=== PATIENT | female | born 1975 | race Caucasian/White ===

== ENCOUNTER 2017-01-26 16:17 | Inpatient (IN) | payer OTHER ==
[~2017-01-26] VITALS: Ht 157.5 cm; Wt 84.5 kg
--- NOTE | ~2017-01-26 | INDIVTXPL2 ---
"PATIENT: NOELLE COOPER R | | [facility] UNIT #: [id number] | [address] AGE/SEX: 41 F : 71 | [address] | [place] [phone] ADMIT/REG DATE: 02/03/17 | ROOM: [facility] LOC: ADTC | ADTC | Individualized Treatment Plan DATE: 02/22/17 Problem Statement/Issue Identified: Client needs to identify ways to improve self esteem to help maintain rn long term care sobriety from all mood altering substances. Goal: Client is to build self-esteem to strengthen her recovery from addiction. Objectives/Activities to achieve goal: 1. Client is to write 10-15 good qualities about herself, and then is to interview 7 peers and 3 staff to name 2 good qualities about herself, client will add these to her list. Share with counselor. Due Date: 03/01/17 Complete: Incomplete: 2. Client is to read spiritual handout on HP and can reflect on positive traits she has during EMDR therapy. Discuss with counselor. Due Date: 03/03/17 Complete: Incomplete: Client Signature Date Counselor Signaure: Date Outcome/Measurement of Progress Towards Goal: Counselor Signature: Date "
--- NOTE | ~2017-01-26 | INDIVTXPL2 ---
"PATIENT: NOELLE COOPER R | | [facility] UNIT #: [id number] | [address] AGE/SEX: 41 F : 71 | [address] | [place] [address] ADMIT/REG DATE: 02/03/17 | ROOM: [facility] LOC: ADTC | ADTC | Individualized Treatment Plan DATE: 02/15/17 Problem Statement/Issue Identified: Client is experiencing family discord and distancing as a result of past alcohol & drug usage. Clients goal is: Client will learn about effects of addiction on family/self, and work on owning how her addiction hurt her loved ones and owning her feelings to strengthen family support in her recovery. Objectives/Activities to achieve goal: 1. Client is to attend Family Educational Program and Tuesday 2-4:45pm to learn about effects of addiction on self/family and is to participate. See family notes. Due Date: 02/28/17 Complete: Incomplete: 2. Client is to write feelings letters to her parents/daughter owning how her addiction hurt them and her feelings about this. Share with counselor/family group/session. Due Date: 02/28/17 Complete: Incomplete: 3. Client is to have family session/phone session with parents and if daughter can come, have a 1 hour family session or the family program if possible. See family note. Due Date: 02/28/17 Complete: Incomplete: Client Signature Date Counselor Signaure: Date Outcome/Measurement of Progress Towards Goal: Counselor Signature: Date "
--- NOTE | ~2017-01-26 | TXPLANREV ---
"PATIENT: NOELLE COOPER | | [facility] UNIT #: [id number] | [address] AGE/SEX: 41 F : 71 | [address] | [place] [address] ADMIT/REG DATE: 02/03/17 | ROOM: [facility] LOC: ADTC | ADTC | Treatment Plan/Staffing Review Date: 02/24/17 Treatment plan was reviewed and determined appropriate as written: yes, client is to do EMDR therapy and relapse prevention. Treatment plan was reviewed and the following changes/addition/deletions are necessary: Discharge plans were reviewed and determined appropriate as previously documented: Client is to discharge on 03/03/17, is referred to see Tony Foreman on 03/10 at 9am and come back for Codep/Womens Group 03/10 at 6pm-7:45pm. She is also referred to [facility] at 2pm on 03/03/17. She is to attend at least 4 meetings a week and voiced she will go daily and more. She has sponsor she is to continue to talk to daily. Discharge plans were reviewed and determined to be as follows: Other pertinent issues discussed during this staffing review include: Client is doing very well in treatment and would benefit from an all womens group and to continue to work on issues/feelings with her family. She Staff Present: Shasta Webber, Tony Foreman, Nalini Duran, Ny Yepez, Monique Wright, Kristen Mackey PRIMARY COUNSELOR: Fely Dillard Client Signature Counselor Signature Date Time "
--- NOTE | ~2017-01-26 | INDIVTXPL2 ---
"PATIENT: NOELLE COOPER R | | [facility] UNIT #: [id number] | [address] AGE/SEX: 41 F : 71 | [address] | [place] [address] ADMIT/REG DATE: 02/03/17 | ROOM: [facility] LOC: ADTC | ADTC | Individualized Treatment Plan DATE: 02/10/17 Problem Statement/Issue Identified:Client continues to use alcohol/drugs/involvement in criminal behavior despite ongoing negative consequences. Goal: Client is learn about addiction and recovery, identifying consequences of her addiction/criminal behaviors and learn how to succeed in sober/clean/healthy lifestyle. Objectives/Activities to achieve goal: 1. Client is to fill out Getting Started and Step 1 packets, identifying 5-10 consequences of her use. Share with counselor and share selected pages in group. Due Date: 02/17/17 Complete: Incomplete: 2. Client is to fill out Criminogenic packet, identifying 3-5 old criminal behaviors/thoughts that she needs to change. Share with counselor what she related to and how she plans to change. See counselor note. Due Date: 02/22/17 Complete: Incomplete: 3. 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 Share progress with counselor. Due Date: ongoing Complete: Incomplete: Client Signature Date Counselor Signaure: Date Outcome/Measurement of Progress Towards Goal: Counselor Signature: Date "
--- NOTE | ~2017-01-26 | TXPLANREV ---
"PATIENT: NOELLE COOPER | | [facility] UNIT #: [id number] | [address] AGE/SEX: 41 F : 71 | [address] | [place] [address] ADMIT/REG DATE: 02/03/17 | ROOM: [facility] LOC: ADTC | ADTC | Treatment Plan/Staffing Review Date: 02/17/17 Treatment plan was reviewed and determined appropriate as written: Client has completed step 1, Con Game and now is to start on feelings letters. Treatment plan was reviewed and the following changes/addition/deletions are necessary: Discharge plans were reviewed and determined appropriate as previously documented: Discharge plans were reviewed and determined to be as follows: Client is to discharge on 03/03/17, she has applied to [facility], and will be referred to aftercare counseling and group therapy here, along with AA/NA and using her sponsor. Other pertinent issues discussed during this staffing review include: Client is very serious, does very well with her assignments and follows rules. Staff Present: Janel Domínguez, Monique Wright, Kristen Mackey, Javad Espinoza, Ny Yepez PRIMARY COUNSELOR: Fely Dillard Client Signature Counselor Signature Date Time "
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
--- NOTE | ~2017-01-26 | INDIVTXPL2 ---
"PATIENT: NOELLE COOPER R | | [facility] UNIT #: [id number] | [address] AGE/SEX: 41 F : 71 | [address] | [place] [address] ADMIT/REG DATE: 02/03/17 | ROOM: [facility] LOC: ADTC | ADTC | Individualized Treatment Plan DATE: 02/22/17 Problem Statement/Issue Identified: Client is relapsing and needs to identify relapse warning signs and develop a plan to deal with them as they arise. Goal: Client is to learn about relapse prevention, identifying her relapse symptoms/triggers and develop a plan of how to avoid relapse. Objectives/Activities to achieve goal: 1. Client is to attend Relapse Prevention class every Tuesday while in treatment and participate. Also attend Relapse lecture 5:30pm on 03/01/17. See class notes. Due Date: 03/01/17 Complete: Incomplete: 2. Client is to fill out Relapse Prevention packet, identifying top 5-10 relapse triggers and develop plan of how to avoid relapse. Share with counselor and selected pages in group. Due Date: 03/03/17 and in aftercare go over with counselor Complete: Incomplete: Client Signature Date Counselor Signaure: Date Outcome/Measurement of Progress Towards Goal: Counselor Signature: Date "
--- NOTE | 2017-02-03 12:55 | NUR ---
ADMISSION NOTE Client is a 41 y/o single female, referred to treatment by probation and brought here today by a friend from her home in [place], where the client lives alone. Client states medical allergy to penicillin and brings no medications with her today. Client states DOC is marijuana, last used February 01; client states that she generally smokes 3 joints per week. Client also smokes meth, most recently on January 30- two to three bowls. Client was searched, no contraband found. 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 Client stated that she did not need to write down numbers from her phone, that she has them memorized. Rights/Responsibilities: Copy given and explained to client. Signed and accepted by client. Client oriented to physical lay out of the ADTC unit, given Big Book and admission packet. A Mahamed was assigned. Amita
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
--- NOTE | 2017-02-03 17:24 | NUR ---
Step ed. 1 hr/ focus was on step one and powerlessness. Each person answered a set of questions on paper and then we discussed out loud. This client participated.
--- NOTE | 2017-02-03 23:14 | NUR ---
TECH NOTE: Client did Indian[employer]agemer bookmarks for REC, participated in guided meditation, and attended AA meeting. Did first intros. SE: first day in treatment
--- NOTE | 2017-02-04 01:22 | NUR ---
1 HR EDUCATION: Client watched a video "Say Yes to Life" by Father Ousmane Bingham
--- NOTE | 2017-02-04 04:45 | NUR ---
Bed Note: CLt lay motionless in bed with eyes closed showing no distress at all bed checks.
--- NOTE | 2017-02-04 13:41 | NUR ---
Morning Group, 10/20, 1.5 hours, Client attended and actively participated in group session. Client shared she is still learning about the treatment program and moslty listened.
--- NOTE | 2017-02-04 14:57 | NUR ---
PEER REVIEWS 1.5 HRS: Clt participated in peer review process and took a risk to give open and honest feedback.
--- NOTE | 2017-02-04 16:33 | NUR ---
Tech Note: Clt watched "Relapse" for afternoon video. Clt is working on Getting Started.
--- NOTE | 2017-02-04 22:53 | NUR ---
Tech note: Client watched tv and movies.
--- NOTE | 2017-02-05 05:24 | NUR ---
Bed note : Client was in bed motionless with eyes close at all bed checks.
--- NOTE | 2017-02-05 15:44 | NUR ---
Tech Note: Client attended A.A.Meeting at [facility] and [place] and then helped with the clubhouse cleaning, ate lunch, and listened to a speaker. Client is working on BB
--- NOTE | 2017-02-05 20:49 | NUR ---
tech note: Client played a game for recreation & attended offsite AA meeting. Client was given clothes from the donation closet. Client watched tv. SE: Free time.
--- NOTE | 2017-02-06 05:26 | NUR ---
Bed note: Client was in bed motionless with eyes closed at all bed checks.
--- NOTE | 2017-02-06 16:22 | NUR ---
TECH NOTE: Client participated in Chapter 5 of Big Book study, attended study time, and watched tv/movies
--- NOTE | 2017-02-06 23:44 | NUR ---
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 Client watched tv. SE: All day.
--- NOTE | 2017-02-07 04:41 | NUR ---
Bed Note: Clt lay motionless in bed with eyes closed showing no distress at all bed checks.
--- NOTE | 2017-02-07 11:15 | NUR ---
Tech notes: Client is working on BB
--- NOTE | 2017-02-07 15:41 | NUR ---
Education note: Client attended speaker for education, Sarah on Tobacco
--- NOTE | 2017-02-07 16:00 | NUR ---
Recovery 101 1 hr/ Clients all participated in reading, highlighting and discussing the Big Book on areas about honest, acceptance, living in problem vs living in solution, resentments, 1/2 measures, and the 12 promises.
--- NOTE | 2017-02-07 17:53 | NUR ---
GROUP 1.5 HR/ 9:1 Clients all heard peers share packets/shame booklet and this client seemed distracted, looking around, dependent on a female she knows from before, walked to look out window, didn't bring assignments to group.
--- NOTE | 2017-02-07 18:19 | NUR ---
Education: 1 hour lecture given by counselor on "forgiveness"
--- NOTE | 2017-02-07 22:36 | NUR ---
Tech note : Client went on a walk for rec and attended an onsite NA meeting. SE; All day
--- NOTE | 2017-02-08 04:18 | NUR ---
Bed note: Client was in bed with eyes closed and no distress at all bed checks.
--- NOTE | 2017-02-08 11:30 | NUR ---
GROUP 1.5 HRS. 1:9 Clients participated in orienting new peer to purpose and rules. Discussion included discharge plans and the importance of aftercare plan. Peer processed HOW TO GET STARTED IN TREATMENT assignment.
--- NOTE | 2017-02-08 13:26 | NUR ---
Tech Note: Client participated in light stretching for morning exercise and went for an outdoor walk in the afternoon. Client stated that she is working on reading the Big Book.
--- NOTE | 2017-02-08 13:36 | NUR ---
Education One Hour: Client heard a presentation on Sexually Transmitted Disease.
--- NOTE | 2017-02-08 15:00 | NUR ---
IS 1 hr/ Client and counselor got acquainted as counselor was on vacation last when she was admitted. Client and counselor went over some of her BPS and some of her GS packet. She is to finish the GS packet this week and start on step 1. She shared about using meth for free most of her adult life, did drink to excess when younger, did use pot also. Client has legals pending so asked about her court coming up next week, if she could go. Did check her releases and called her deputy commonwealth's attorney, her deputy commonwealth's attorney will try to get court date changed. Client at times said things that seemed to show she knows she has a problem and needs to quit, but at times would say things that shows she still wants to use and doesn't believe she could be happy sober/clean. She does admit her daughters will not let her see her grandchildren if she keeps using so she became tearful about this and this may be her main motivation in treatment at this time. She has been in [facility] and doesn't want to go back so this also is a motivation for her,however it doesn't seem like she has personal motivation. She indicated on BPS that meth and pot did not cause any problems for her and she had skipped the parts on consequences of her use so had her go back over that and she asked for some help in understanding and did end up checking some yes's for problems/negative affects on her life. She denied a problem at first but as talked about legals she has several and was locked up, all drug related including a shoplifting. PLan to contact family and finish going over BPS next session, setting up tx planning also.
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
--- NOTE | 2017-02-08 16:20 | NUR ---
FAMILY CONTACT-Client did not sign releases for any family involvement, stating they won't come due to family issues from childhood.
--- NOTE | 2017-02-08 20:30 | NUR ---
education note: 1 hour lecture by counselor on" what bravo are you willing to pay"
--- NOTE | 2017-02-08 22:57 | NUR ---
Tech note: Client attended the Alumni meeting, participated in guided meditation and attended an onsite AA meeting. She was late to client meeting. SE; Meeting with counselor
--- NOTE | 2017-02-09 04:58 | NUR ---
Bed note: Client was in bed with eyes closed and motionless at all bed checks.
--- NOTE | 2017-02-09 10:41 | NUR ---
Tech notes: Client is working on
--- NOTE | 2017-02-09 12:37 | NUR ---
Education note: Client had education by [facility]
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
--- NOTE | 2017-02-09 17:30 | NUR ---
SPIRITUAL EDUCATION 1 HR. Todays topics were orienting newcomers, and taking a look at Yonatan Dougherty's 5 SECRETS TO SUCCESS which include a look at the miracles of the human body as blessings.
--- NOTE | 2017-02-09 20:57 | NUR ---
education: 1 hour video on unresolved anger and group discussion with counselor
--- NOTE | 2017-02-09 22:14 | NUR ---
Tech note: Client worked on beaded project and attended an onsite NA meeting. SE; NA meeting
--- NOTE | 2017-02-10 04:03 | NUR ---
Bed note: Client was in bed with eyes closed and no distress at all bed checks.
--- NOTE | 2017-02-10 10:31 | NUR ---
Tech Note: Client participated in Spiritual Enrichment. Client stated that she is working on Step One.
--- NOTE | 2017-02-10 11:30 | NUR ---
AM GRP 1.5 HRS, Ratio 1:11/ Clt participated mimimally as others shared.
--- NOTE | 2017-02-10 13:40 | NUR ---
Education 1 Hour: Client heard a presentation from a member of the recovery community who shared his experience, strength and hope.
--- NOTE | 2017-02-10 16:18 | NUR ---
step education 1 hr/ Focus was on step 2, handed out some questions they completed on paper and then opened it up for discussion. This client participated and shared she has a higher power since coming here.
--- NOTE | 2017-02-10 23:51 | NUR ---
Tech Note: Client attended Guided Meditation and A.A.Meeting. Client needs to wear shirts that cover her entire stomach. She was looking at a phone in A.A.Meeting from girl beside her. Needs to be addressed, but haven't had opportunity and then forgot. I appologize for that. SE: All Day
--- NOTE | 2017-02-11 04:26 | NUR ---
Eduction: 1 Hour. Client attended "Unresolved Anger" video & discussion presented by staff.
--- NOTE | 2017-02-11 11:30 | NUR ---
GROUP 1.5 HR/ 11:1 Clients all reviewed rules and heard new member share about himself. This client was attentive and gave some feedback.
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
--- NOTE | 2017-02-11 14:54 | NUR ---
FAMILY CONTACT- DID GET release for her mother, did call and her mom hopes she works on being clean, says she didn't work for over 10 years and needs to get a job, she won't help her financially any more. They love her but don't want to see her when she is using, needs to get and stay clean/sober.
--- NOTE | 2017-02-11 16:27 | NUR ---
Tech Note: Client participated in group walk for exercise and watched "Recovery Issues Part 3" for afternoon video. Client is working on the [employer] Book.
--- NOTE | 2017-02-11 22:50 | NUR ---
TECH NOTE: Client participated in reading guidelines and watched tv/movies. Attended optional off site AA meeting SE: meeting with counselor
--- NOTE | 2017-02-12 04:12 | NUR ---
Bed Note: Clt lay motionless in bed with eyes closed showing no distress at all bed checks.
--- NOTE | 2017-02-12 16:06 | NUR ---
Tech Note: Client attended NA Panel and is working on [employer] Game.
--- NOTE | 2017-02-12 20:29 | NUR ---
Tech note: Clt played a game for recreation and attended offsite AA mtg. Watched tv and used phone. SE was all day
--- NOTE | 2017-02-13 04:39 | NUR ---
Bed Note: Clt lay motionless in bed with eyes closed showing no distress at all bed checks.
--- NOTE | 2017-02-13 15:56 | NUR ---
Tech Note: Client participated in Big Book Study. Client stated that she is working on, "[employer] Game." Client received a visitor.
--- NOTE | 2017-02-13 22:51 | NUR ---
Tech Note: Clt attended AA panel, [employer] mtg, used phone and watched movies. SE was visit
--- NOTE | 2017-02-14 04:41 | NUR ---
Bed Note: Clt lay motionless in bed with eyes closed showing no distress at all bed checks.
--- NOTE | 2017-02-14 10:18 | NUR ---
Tech notes: Client is working on Con-game and court at 8:00 today
--- NOTE | 2017-02-14 12:00 | NUR ---
Group 1.5 hr/10:1 Clients heard peers share packets, this client was attentive.
--- NOTE | 2017-02-14 13:32 | NUR ---
Education: Client attended education by Shasta on Infection prevention.
--- NOTE | 2017-02-14 16:00 | NUR ---
Recovery 101 1 hr/ Clients all were asked to share what they worked on in treatment or past treatments that really helped them and/or their experience with working an AA/NA program of recovery-what went well. This client was attentive and gave some input with her current treatment.
--- NOTE | 2017-02-14 18:12 | NUR ---
Education: 1 Hour. Client attended "Adult Children of Alcoholics" lecture presented by staff.
--- NOTE | 2017-02-14 23:37 | NUR ---
tech note: Client played a game for recreation & attended onsite NA meeting. SE: All day.
--- NOTE | 2017-02-15 04:32 | NUR ---
BED NOTE: Client was in bed, motionless with eyes closed last two bed checks, talked to tech first check.
--- NOTE | 2017-02-15 11:27 | NUR ---
A.M. 1.5 hr res group/ratio 1:10/ Assignments shared were a how to get started and a letter to self. Discussion focused on resenting self, forgivness, feeling afraid and out of place and believing in self. This client participated and gave some feedback. She said she just hopes she stays clean.
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
--- NOTE | 2017-02-15 16:00 | NUR ---
Relapse Prevention, 1.0 hours, Client attended and actively participated in relapse prevention education which focused on internal and external triggers.
--- NOTE | 2017-02-15 16:41 | NUR ---
Tech Note: Client participated in Nutritional Services presentation and is working on the Big Book.
--- NOTE | 2017-02-15 22:43 | NUR ---
Education: 1 hour lecture given by counselor on co-dependency
--- NOTE | 2017-02-15 22:54 | NUR ---
Tech note: clients played catchphrase for rec, participated in guided meditation and attended AA meeting SE:LEESA pollack
--- NOTE | 2017-02-16 04:37 | NUR ---
bed note: client was in bed with eyes closed and motionless at all bed checks.
--- NOTE | 2017-02-16 09:55 | NUR ---
Tech notes: Client is working on Fl's
--- NOTE | 2017-02-16 11:30 | NUR ---
GROUP 1.5 HRS. 1:12 Clients participated in orienting new peer to purpose and rules of group. Discussion included healthy coping skills to deal with stress and feelings. Peer processed from his step 1 assignment identifying how he betrayed his values in his addiction. Client was not involved in discussion. She repeatedly blew her nose in a loud fashion.
--- NOTE | 2017-02-16 13:15 | NUR ---
Education note: Client attended educational speaker Stanford Negrete
--- NOTE | 2017-02-16 17:30 | NUR ---
SPIRITUAL EDUCATION 1 HR. Today we used music to invoke discussion, symbolize how it can be either positive spirituality or negative spirituality, and discussed the feelings. We used one song that depicted addiction, one that talked about recovery, and since we are close to Mother's Day, one that depicted addiction in parents and forgiveness.
--- NOTE | 2017-02-16 18:19 | NUR ---
Education: 1 Hour. Client attended "Boudaries" lecture given by staff.
--- NOTE | 2017-02-16 22:58 | NUR ---
Tech Note: Client played a game for rec, and attended The on unit N.A.Meeting. SE: All Day
--- NOTE | 2017-02-17 04:30 | NUR ---
Bed Note: Client was in bed with eyes closed and motionless at all bed checks.
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
--- NOTE | 2017-02-17 15:58 | NUR ---
step education 1 hr/ Focus was on step 3 of the 12 steps Made a decision to turn our will and lives over to God. Each person were given questions to answer on paper and then to share and discuss. This client participated.
--- NOTE | 2017-02-17 18:17 | NUR ---
Education 1HR: Clt watched video called "Predator part 1" by Erich Harris with staff present.
--- NOTE | 2017-02-17 23:12 | NUR ---
Tech Note: Client took a walk for rec and attended the A.A.Meeting. SE: All Day
--- NOTE | 2017-02-17 23:24 | NUR ---
1:00 pm. Education Note: Client watched video "Inside the Addictive Personality"
--- NOTE | 2017-02-18 04:09 | NUR ---
Bed Note: Client was in bed and motionless at all bed checks.
--- NOTE | 2017-02-18 09:52 | NUR ---
IS 1 hr/ Client had 3 letters written but did not follow the outline. Did share them with counselor and then did discuss how to add more to them, owning her feelings and give more specifics with her addiction and recovery plan. Did go over her BTR Game packet and she did a good job on this, is to share selected pages in group.
--- NOTE | 2017-02-18 11:50 | NUR ---
Group 1.5 hr Ratio 1:10/Topics today were Orientation a new client to group rules and goals, a con game packet and a letter to a family member. Client shared her con game packet and did well looking at how she liked to manipulate people when she was active in her addiction.
--- NOTE | 2017-02-18 14:32 | NUR ---
PEER REVIEWS 1.5 HRS: Clt participated in peer review process and was able to give open and honest feedback to those receiving a review. Client started to put chairs away before peer review was finished and was called on it. She then stopped.
--- NOTE | 2017-02-18 15:42 | NUR ---
Tech Note: Client participated in group walk and watched "Marijuana" by Erich Harris. Assignment being worked on is Feelings Letters.
--- NOTE | 2017-02-18 23:24 | NUR ---
Tech note: Client played games and watched movies. Client walked to an offsite AA meeting.
--- NOTE | 2017-02-19 04:02 | NUR ---
Bed note: Client was in bed with eyes closed and no distress at all bed checks
--- NOTE | 2017-02-19 16:55 | NUR ---
Tech Note: Client went to A.A.Meeting at [address]. also went on walk and had visit Client is working on BB
--- NOTE | 2017-02-19 22:17 | NUR ---
Tech note: Client's were just starting to grill around 6pm so we did not have rec this evening. Client walked to an offsite AA meeting, played games and watched movies. SE; Family
--- NOTE | 2017-02-20 04:46 | NUR ---
tech note: client was motionless in no distress at all bed checks.
--- NOTE | 2017-02-20 17:43 | NUR ---
Tech Note: Client participated in Big Book study. Client stated that she is working on writing feelings letters. Client went for an optional outdoor walk.
--- NOTE | 2017-02-20 23:33 | NUR ---
tech note: Client participated in community clean & attended TUR[employer] MACHINE meeting. Client was seen in the hallway in [facility]. SE: All day.
--- NOTE | 2017-02-21 04:25 | NUR ---
tech note: client was motionless in no distress at all bed checks.
--- NOTE | 2017-02-21 11:30 | NUR ---
Experiential Group 1.5 hr/ Clients all participated in looking at family dynamics and feelings through sculpturing and participated with feedback, relating and/or role-playing. This client mostly quiet, some feedback.
--- NOTE | 2017-02-21 16:19 | NUR ---
RECOVERY 101 1 HR/ Clients all filled out 30 question sheet on consequences of their use, looking at every chemical they have used to help see powerlessness and not minimize any chemicals they have abused. Clients learned about early stages and definition of addiction. This client was involved, tends to argue how alcohol isn't problem for her as never got into much drinking.
--- NOTE | 2017-02-21 17:50 | NUR ---
Tech Note: Client went for an outdoor walk in the afternoon. Client stated that she is working on reading the Big Book.
--- NOTE | 2017-02-21 20:49 | NUR ---
Education 1 HR: Clt listened to lecture given by counselor on communication.
--- NOTE | 2017-02-21 23:15 | NUR ---
Client played a game for rec and attended on site N.A.Meeting SE: All Day
--- NOTE | 2017-02-22 04:58 | NUR ---
Bed Note: Client was in bed and motionless at all bed checks
--- NOTE | 2017-02-22 10:00 | NUR ---
IS 1 hr/ Client and counselor did go over her letters, is to add more examples from page 11 (only had 3-4 on page 11 so is to add more). Client was tearful as shared moms and especially daughters. She did call sponsor Tuesday and sponsor told her to lean on long haired gal going to [place], so she asked sponsor I thought you were suppose to help me. Client was given other tx plans, did have her start list of positive traits to help self-esteem. She was shown video on EMDR and did do relaxation technique with EMDR, she chose Kassandra Arguello and "chillin at kassandra arguello" as her words. She liked this. May need hand tapping for trauma...
--- NOTE | 2017-02-22 11:30 | NUR ---
GROUP 1.5 HRS. 1:11 Client participated in orienting new peer to purpose and rules of group. Group discussion included the progression of the addiction and the effects on family and lives including suicide attempts. Peer processed goodbye letter to addiction and discussed the need to end the relationship.
--- NOTE | 2017-02-22 15:19 | NUR ---
Tech Note: Client joined group for afternoon walk, listened to speaker from [facility] and is working on the Big Book.
--- NOTE | 2017-02-22 16:06 | NUR ---
Tech Note: Client attended Relapse Prevention education with Kristen.
--- NOTE | 2017-02-22 19:55 | NUR ---
Education: 1 hour lecture on STD/AID/HIV gijhon by [facility].
--- NOTE | 2017-02-22 22:36 | NUR ---
Tech note : Client worked on [employer] crafts and get well cards. Client participated in guided meditation and went to an onsite AA meeting.
--- NOTE | 2017-02-23 04:16 | NUR ---
Bed note: Client was in bed with eyes closed and no distress at all bed checks
--- NOTE | 2017-02-23 11:16 | NUR ---
Tech Note: Client is working on the [employer] Book.
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
--- NOTE | 2017-02-23 13:19 | NUR ---
Tech Note: Client walked in the hallways for afternoon exercise.
--- NOTE | 2017-02-23 13:23 | NUR ---
Education One Hour: Client heard from members of the recovery community, who shared their experience, strength and hope.
--- NOTE | 2017-02-23 17:23 | NUR ---
SPIRITUAL EDUCATION 1 HR. Topics today were orienting newcomers and then broke into groups and did presentations on their sections from TOWARDS SPIRITUALITY.
--- NOTE | 2017-02-23 18:48 | NUR ---
Education: 1 hour lecture given by counselor on "Disease concept".
--- NOTE | 2017-02-23 22:34 | NUR ---
Tech note: Client played catch phrase for rec and attended an onsite NA meeting. SE: NA
--- NOTE | 2017-02-24 05:01 | NUR ---
Bed note: Client was in bed with eyes closed and no distress at all bed checks.
--- NOTE | 2017-02-24 10:47 | NUR ---
Tech Note; Client participated in light stretching for morning exercise. Client stated that she is working on reading the Big Book.
--- NOTE | 2017-02-24 12:36 | NUR ---
Group 1.5 Hr Ratio 1:11/Topics today were feelings letters, a good bye letter to addiction and a couple getting started packets. Client shared how she could relate to what peers were sharing.
--- NOTE | 2017-02-24 16:21 | NUR ---
Education 1 Hour: Client heard from two members of the recovery community, who shared their experience strength and hope.
--- NOTE | 2017-02-24 16:48 | NUR ---
FAMILY EDUCATION 3 HRS. Client attended alone and took part in the discussion on the disease concept. Client shared chemical history and the consequences.
--- NOTE | 2017-02-24 20:25 | NUR ---
Education: 1 Hour. Client attended Gurdeep Loya "Unhealthy Families" video.
--- NOTE | 2017-02-24 23:02 | NUR ---
Client went on a walk for rec, participated in guided meditation, and attended the on unit A.A.Meeting. Left A.A.Meeting to get meeting cards and again to use restroom SE: Family
--- NOTE | 2017-02-25 05:36 | NUR ---
tech note: client was motionless in no distress at all bed checks.
--- NOTE | 2017-02-25 11:54 | NUR ---
Group 1.5 Hr Ratio 1:11/Topics today were two Getting started packets, feelings letters and a letter to self. Client shared feelings letters to her mom, dad and daughter. Letters to parents lacked feelings and daughter was better but was very vauge about what she did.
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
--- NOTE | 2017-02-25 14:50 | NUR ---
Tech Note: Client joined our group walk for exercise. Watched video titled "Sound of Silence" and is working on the Big Book.
--- NOTE | 2017-02-25 20:32 | NUR ---
TECH NOTE: Client participated in reading of guidelines, watched TV/movies and attended optional offsite AA meeting SE: last weekend here
--- NOTE | 2017-02-26 04:32 | NUR ---
BED NOTE: Client was in bed, motionless with eyes closed all bed checks.
--- NOTE | 2017-02-26 16:21 | NUR ---
Tech Note: Client is working on Feelings Letters.
--- NOTE | 2017-02-26 20:26 | NUR ---
Tech note: Clt played a game for recreation and attended offsite AA mtg. Clt watched movies and used phone. SE was all day
--- NOTE | 2017-02-27 04:26 | NUR ---
BED NOTE: Client was in bed motionless with eyes closed all three bed checks.
--- NOTE | 2017-02-27 15:57 | NUR ---
Tech Note: Client participated in Big Book study. Client stated that she is working on writing feelings letters.
--- NOTE | 2017-02-27 23:07 | NUR ---
Tech Note: Client attended the A.A.Panel with Solomon Black Client also attended the [employer] Meeting SE: All Day
--- NOTE | 2017-02-28 04:38 | NUR ---
Bed Note: Client was laying in bed and motionless at all bed checks.
--- NOTE | 2017-02-28 09:50 | NUR ---
Tech note: Client is working on Relapse prevention
--- NOTE | 2017-02-28 12:56 | NUR ---
Education Note: Clients attended speaker for education Kit J.
--- NOTE | 2017-02-28 16:02 | NUR ---
PEER REVIEWS 1.25 HRS: Clt participated in peer reviews and took a risk to give open and honest feedback to those receiving a review. Client had a peer review done and some of what she heard was she worries about everyone else, has control issues, snaps, is childish, gets mad when things don't go her way, will not listen to others, attacks others, still entertains the chaos type of life, doesn't own up to her wrong doings, and judges others.
--- NOTE | 2017-02-28 17:00 | NUR ---
FAMILY EDUCATION 3 HRS. Client attended alone and took part in the discussion on the family roles, codependency and detachment. Peers see client as lost child role.
--- NOTE | 2017-02-28 18:20 | NUR ---
Education: 1 Hour. Client attended "Feelings" lecture presented by staff.
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
--- NOTE | 2017-02-28 23:23 | NUR ---
tech note: client attended Family Session. SE: Family.
--- NOTE | 2017-03-01 04:47 | NUR ---
tech note: client was motionless in no distress at all bed checks.
--- NOTE | 2017-03-01 12:54 | NUR ---
GROUP 1.5 HRS. 1:11 Group discussion included cravings and grief of old lifestyle as well as feelings letters/effects on kids and betraying values. This client was prompted to relate and advised others were sharing so she did not have a chance. She was advised that she is being given the opportunity now and she did relate to betraying values. She shared fear at the beginning of group due to possible legal interaction.
--- NOTE | 2017-03-01 14:04 | NUR ---
IS 1 hr/ Client did very good job on her Relapse Prevention packet, had every page done and very thorough work. Did go over some of the Continued Care Plan, and will go over rest of it tomorrow. Did call her manager rn about a officer that wanted to meet with her and manager rn advises her to not do anything til she finds out more. Client was fearful but worked on focussing on her recovery and how much progress she has made, plus has 30 days today!!
--- NOTE | 2017-03-01 15:50 | NUR ---
Relapse Prevention, 1.0 hours, Client attended and actively participated in relapse prevention education which focused on compulsive behaviors and relapse.
--- NOTE | 2017-03-01 16:11 | NUR ---
Tech Note: Client watched Part 2 of Predator by Erich Harris and had Relapse Prevention for 3:00 education. Assignment being worked on: Relapse Prevention.
--- NOTE | 2017-03-01 16:24 | NUR ---
Education Note: Client attended Relapse Prevention presented by counselor Monique.
--- NOTE | 2017-03-01 20:18 | NUR ---
Education: 1 hour lecture given by counselor on relapse.
--- NOTE | 2017-03-01 20:27 | NUR ---
tech note: Client went for walk for rec, participated in guided meditation and attended AA meeting
--- NOTE | 2017-03-01 23:38 | NUR ---
Tech Note: Client went on a walk for rec and attended the on unit A.A.Meeting. Client participated in Guided Meditation at 1930. SE: 30 day coin A.A.
--- NOTE | 2017-03-02 04:57 | NUR ---
Bed note: client was in bed with eyes closed and no distress at all bed checks.
--- NOTE | 2017-03-02 10:21 | NUR ---
Tech notes: Client is working on BB
--- NOTE | 2017-03-02 11:30 | NUR ---
BIG GROUP 4:21 Group was brought together to discuss issues of old behaviors, treatment relationships and other violations of guidlines that are being kept secret. All were encouraged to look at the difficulty they have confronting with assertiveness, rather than passive/aggressive. This client offered some positive feedback. She was noted to be talking to the person sitting next to her while others were sharing. This client was one that was noted in comm. mtg. to be spending an excessive amt. of time with male peer TE.
--- NOTE | 2017-03-02 13:49 | NUR ---
Educational note: Client watched a video for education.
--- NOTE | 2017-03-02 16:53 | NUR ---
IS 1 hr/ Client and counselor did go over her aftercare plans, is to start counseling and group next . Had her fill out part of Continued Care plan and gave her copy of it with phone#'s of counselors. Client was given medallion and did do survey. She expressed alot of gratitude and is glowing with big smile, feels happy with her treatment experience and aftercare. Has her sponsor picking her up tomorrow.
--- NOTE | 2017-03-02 17:18 | NUR ---
SPIRITUaL EDUCATION 1 HR. Clients were oriented to the group and learned difference between spirituality and gnosticist. We addressed GRATITUDE today with discussion, worksheet and activity.
--- NOTE | 2017-03-02 18:24 | NUR ---
Education: 1 Hour. Client attended "Self Esteem" lecture presented by staff.
--- NOTE | 2017-03-02 23:28 | NUR ---
tech note: client went on a walk for recreation & attended the onsite NA meeting. Client was given her luggage. SE: walk.
--- NOTE | 2017-03-03 05:12 | NUR ---
Bed Note: Clt lay motionless in bed with eyes closed showing no distress at all bed checks.
--- NOTE | 2017-03-03 11:18 | NUR ---
Tech Note: Client participated in Spiritual Enrichment.
--- NOTE | 2017-03-03 11:30 | NUR ---
AM GRP 1.5 HRS, Ratio 1:11/ Clt sat mostly quiet, but when she did share it was about being nervous to leave, yet ready to take on the world and use what she's learned here.
--- NOTE | 2017-03-03 18:57 | NUR ---
DISCHARGE NOTE Client completed treatment and left the facility, taking all personal belongings with her, with the exception of her cell phone. Client returned at 1715 to get her phone. Discharge instructions were reviewed and a signed copy provided to the client.
--- NOTE | 2017-03-12 11:58 | HP ---
ADMIT: 02/03/2017 RM/LOC: Jason [facility] MR#: [id number] [id number] [place], [place] [address] NOELLE COOPER [address] [place] [address] History and Physical SEX: F AGE: 41 : 1975 Corrected: 03/08/2017 0817 s DATE OF SERVICE: 02/03/2017 CHIEF COMPLAINT: Drug problem with continued use of meth and marijuana. CLINICAL HISTORY: The patient is a 41-year-old white female admitted to the residential care program at the [facility] for treatment of her cannabis use disorder as well as her stimulant use disorder. The patient readily admits that she is a drug addict. She comes to treatment after recently having spent 15 days in snf for probation violation. The patient notes that she was arrested for shoplifting and other charges. Last year, she went to court and was placed on probation, which started on 08/23/2016. She continued to use both meth and pot while on probation, and after having had 4 dirty UAs in less than a month, she was referred to the [facility] program where she spent from September 30, 2016 through November 03, 2016. She completed the [facility] program and relapsed immediately starting to use on the day she got out of treatment. She subsequently has had another dirty UA and for that reason was placed in snf from 01/13/2017 until 01/28/2017. Since being released from snf 6 days ago, she has not used, but notes that she is homeless, and other than for staying with friends, she has no place to live. She knows that if she does not get into treatment that she will immediately relapsed again. She notes that her drug of choice is marijuana. She first started smoking pot at age 17 and is a daily user, typically smoking up to as much as 0.25 ounce per day. She notes she has been a daily user since age 25. Her second drug of choice is methamphetamine. She smokes meth pretty much on a daily basis, has been using daily for at least the last 3 to 4 years. She first started smoking meth at age 31. She is very vague on how much she smokes. She notes that she usually is not buying it. She is getting it from friends. May use as much as 1 to 2 g per day. She notes that her third drug of choice is alcohol, although she rarely drinks, although she notes that from December 17 through December 27, she drank daily for 10 days using alcohol so that she would not use other drugs. She denies any other illicit drug use. She denies any abuse of prescription drugs. For treatment at [facility] in September and October was the first time she has been in treatment, and as noted, she relapsed immediately upon discharge from that treatment program. She comes to treatment with potential probation revocation if he does not get clean and remain clean. PAST MEDICAL HISTORY: PREVIOUS HOSPITALIZATIONS: The patient notes that her only hospitalizations have been for childbirth. She has had 4 normal vaginal deliveries. Her children are ages 28, 24, 20, and 14. PREVIOUS OPERATIONS: The patient had a tubal ligation in 1992 following the of her youngest daughter. She has had no other surgeries. CURRENT MEDICATIONS: None. ALLERGIES: SHE IS ALLERGIC TO PENICILLIN. ADMIT: 02/03/2017 RM/LOC: Jason [facility] MR#: [id number] [address] [address] NOELLE COOPER [address] [place] [address] History and Physical SEX: F AGE: 41 : 1975 OBSTETRIC/GYNECOLOGIC HISTORY: She is a 4, para 4-0-0-4, notes that her menses are still regular, but not on contraception since she has had a tubal ligation. MEDICAL ILLNESSES: The patient denies any chronic medical problems. She is noted to be a smoker, typically smokes a half pack a day. She denies cough or respiratory symptoms. She denies any significant cardiac, pulmonary, GI, , musculoskeletal, or neurologic problems. SOCIAL HISTORY: The patient is single. She has 4 children from several relationships. She has a son age 28, daughters age 24, 20, and 14. She notes that her mother is currently raising her 14-year-old daughter. The patient notes that she dropped out of high school in the 11th grade. She is currently unemployed. She has not worked in the last 14 years. She is also homeless at this time. FAMILY HISTORY: She notes that her parents when she was young. She was primarily raised by her mother. She notes she has 2 older brothers. One of her brothers is currently in alf on drug charges. He is a meth and pot addict as well. She notes her father was an alcoholic. PHYSICAL EXAMINATION: VITAL SIGNS: Temp 97.6, pulse 84, respirations 14, blood pressure 109/70, height 5 feet and 2 inches, and weight 184 pounds. GENERAL: The patient is a 41-year-old female, who appears older than her stated age. She is in no acute distress, oriented x3. HEENT: Today, reveals her ears to be clear. Vision and hearing both grossly intact. Nose is unremarkable. Oropharynx reveals dentition to be in extremely poor repair with numerous missing and carious teeth. Chronic periodontal disease. NECK: Supple. Thyroid not enlarged. No cervical adenopathy. LUNGS: Noted to be clear. HEART: Regular rhythm without murmur. ABDOMEN: Somewhat obese, soft, and nontender. No masses. No organomegaly. No hernias. BREASTS AND PELVIC: Not performed. EXTREMITIES: Normal to gross exam. No clubbing or cyanosis. No calf tenderness. INTEGUMENT: No rashes or worrisome skin lesions. NEUROLOGIC: Reveals no focal deficit. Balance and gait normal. Cranial nerves II through XII grossly intact. MENTAL STATUS EXAMINATION: She is pleasant and cooperative. Affect is appropriate. She has no bizarre ideation. No delusions. No significant depressive symptoms at this time. She is oriented x3. She appears to be of average intelligence. Her insight is limited. Judgment is limited. ASSESSMENT AT THE TIME OF ADMISSION: 1. Cannabis use disorder, severe. ADMIT: 02/03/2017 RM/LOC: Jason [facility] MR#: [id number] [address] [address] NOELLE COOPER [address] [place] [address] History and Physical SEX: F AGE: 41 : 1975 2. Stimulant/methamphetamine use disorder, severe. 3. Alcohol use disorder, moderate. 4. Tobacco use disorder. 5. Chronic periodontal disease. PLAN: Plan is to admit the patient to the residential care program with tentative discharge date of 03/03/2017. Upon completion of treatment, would strongly recommend that she go to a usp house. I feel that if she is going to have any chance of long-term sobriety, she needs a structured supportive environment, which a usp house can provide. Anthony Locke MD/ dora JOB #: [id number] CC: Anthony Locke, Attending Physician FAMILY PHYSICIAN, Family Physician Corrected: 03/08/2017 0817 christina
--- NOTE | 2017-04-13 12:37 | DS ---
ADMIT: 02/03/2017 RM/LOC: Jason [facility] MR#: [id number] [facility]#: [id number] [address] [address] NOELLE COOPER [address] [place] [id number] General Discharge Summary SEX: F AGE: 41 : 1975 ADMISSION DATE: 02/03/2017 DISCHARGE DATE: 03/03/2017 ADMITTING DIAGNOSIS: As noted. FINAL DIAGNOSES: 1. Cannabis use disorder, severe. 2. Stimulant/methamphetamine use disorder, severe. 3. Alcohol use disorder, moderate. 4. Tobacco use disorder. 5. Chronic periodontal disease. COMPLICATIONS: None. OPERATIONS: None. CLINICAL HISTORY: The patient is a 41-year-old white female, admitted to the residential care program with [facility] for treatment of her cannabis use disorder as well as her stimulant use disorder. For details of her pattern of usage and problems associated with her ongoing substance abuse and chemical dependence, please see the clinical history portion dictated history and physical. Please also see dictated history and physical for past medical history and pertinent findings on physical exam. Laboratory and x-ray summary from this admission none indicated, none performed. HOSPITAL COURSE: The patient was admitted to the residential care program and assigned to her primary counselor Fely Horton. She remained in treatment from 02/03/2017 through 03/03/2017. While in treatment, she participated in individual therapy and group therapy. She was also given the educational series on substance abuse and worked on many of these assignments. While in treatment, she attended the family education and family group sessions alone. She did not have any family involvement. Her mother refused to come to any of the family portion of the program, although her mother did talk with the patient's counselor over the phone. The patient did attend family program and seem to benefit. While in treatment, she is accepting of her substance abuse problem and worked well with the staff and individual and group sessions. She was able to complete step 1 of AA during this level of care. While in treatment, she had no significant medical problems. She was able to successfully complete residential treatment. She was able to show acceptance of her powerlessness over drugs and alcohol. She worked on self teams, spirituality, and relapse prevention. She did do some EMDR therapy per past trauma. She showed a positive transformation and a change in attitude while in treatment. She made good progress while at the treatment program. It was felt that she would benefit from codependency treatment as well. She ultimately completed her residential treatment goals. It was felt to be ready for the next level of care. The patient was dismissed to outpatient treatment. She is going to do individual outpatient counseling with Tony ADMIT: 02/03/2017 RM/LOC: Jason [facility] MR#: [id number] [address] [address] [place] [address] General Discharge Summary SEX: F AGE: 41 : 1975 [place]ellen. She is also going to start codependency treatment on 03/10/2017. She was referred to [facility] where she is going to reside while she attends her outpatient counseling and codependency treatment here at the [facility]. She is also to attend 4 to 7 AA or NA meetings per week and maintain daily contact with her sponsor. If she is unable to remain clean and sober while in outpatient treatment, we will then need to consider sober living community. CONDITION AT DISCHARGE: Improved. PROGNOSIS: [place] to be good. MEDICATIONS AT DISCHARGE: None. Anthony Locke MD/ dora JOB #: [id number] CC: Anthony Locke MD, Attending Physician NO FAMILY PHYSICIAN, Family Physician
== END 2017-03-03 12:45 | disposition home or self-care (01) | DRG 895 ==
LOC: ADTC 02-03 09:55
PROVIDERS: ADMIT Family Medicine
DX: F12.20 Cannabis dependence, uncomplicated (principal); F15.20 Other stimulant dependence, uncomplicated; F10.20 Alcohol dependence, uncomplicated; F17.210 Nicotine dependence, cigarettes, uncomplicated; K05.6 Periodontal disease, unspecified; Z65.3 Problems related to other legal circumstances; Z59.0 Homelessness; Z56.0 Unemployment, unspecified; Z63.72 Alcoholism and drug addiction in family; Z88.0 Allergy status to penicillin